=== PATIENT | male | born 1985 | race Caucasian/White ===

== ENCOUNTER 2016-08-11 11:15 | Emergency (ER) | payer MEDICAID ==
[2016-08-11 11:39] VITALS: BP 133/71
--- NOTE | 2016-08-11 11:59 | UC ---
Cardiac HPI - HPI Summary HPI Summary: left side chest pain x 5 days was seen at her pcp last week, had chest xray , EKG , D-Dimer done , all negative cont. to have left sided chest pain with upper ext movements and now having a swelling at the left chest wall - History of Current Complaint Chief Complaint: UCChestPain Stated Complaint: CHEST PAIN Time Seen by Provider: 08/11/16 11:41 Hx Obtained From: Patient Onset/Duration: Gradual Onset, Lasting Days - 5, Still Present Timing: Constant Initial Severity: Moderate Current Severity: Moderate Chest Pain Location: Left Anterior Aggravating: Position, Movement, Deep Breaths Alleviating: Rest, OTC Meds Associated Signs & Symptoms: Positive: Swelling. Negative: Anxiety, Recent Stress, Headaches, Numbness, Tingling, Weakness, Dizziness, SOB, Syncope, Fever , Diaphoresis, Nausea/Vomiting, Palpitations, Cough, Hemoptysis, Back Pain, Abdominal Pain, Calf Pain/Swelling - Allergy/Home Medications Allergies/Adverse Reactions: Allergies Allergy/AdvReac Type Severity Reaction Status Date / Time SEASONAL Allergy Mild Congestion Uncoded 08/11/16 11:33 Home Medications: Home Medications Ibuprofen [Advil] 800 mg PO TID 08/11/16 [History Confirmed 08/11/16] PMH/Surg Hx/FS Hx/Imm Hx Previously Healthy: Yes Other History Of: Hepatitis C - cleared - Surgical History Surgical History: Yes Surgery Procedure, Year, and Place: TONSILLECTOMY - Family History Known Family History: Negative: Hypertension, Diabetes - Social History Alcohol Use: None Substance Use Type: None Smoking Status (MU): Former Smoker Type: Cigarettes Amount Used/How Often: 1/2 PPD Review of Systems Constitutional: Negative Skin: Negative Eyes: Negative ENT: Negative Respiratory: Negative Cardiovascular: Chest Pain Gastrointestinal: Negative All Other Systems Reviewed And Are Negative: Yes Physical Exam Triage Information Reviewed: Yes Appearance: Well-Appearing, No Pain Distress, Well-Nourished Vital Signs: Initial Vital Signs Temp 99.5 F 08/11/16 11:29 Pulse 84 08/11/16 11:29 Resp 18 08/11/16 11:29 BP 133/71 08/11/16 11:29 Pulse Ox 99 08/11/16 11:29 Vital Signs Reviewed: Yes Eyes: Positive: Conjunctiva Clear ENT: Positive: Normal ENT inspection, Hearing grossly normal, Pharynx normal Neck: Positive: Supple, Nontender Respiratory: Positive: Lungs clear, Normal breath sounds, No respiratory distress, Other: - + swelling and tenderness anterior left chest wall Cardiovascular: Positive: RRR - Clinical Impression Provider Diagnoses: costochondritis Discharge - Discharge Plan Condition: Stable Disposition: HOME Prescriptions: Naproxen 500 mg PO BID #20 tab Patient Education Materials: Costochondritis (ED) Referrals: Oscar Tinsley MD [Primary Care Provider] - 2 Weeks
== END 2016-08-11 12:04 | disposition home or self-care (01) ==
LOC: UCEAST 11:15
DX: M94.0 Chondrocostal junction syndrome [Tietze] (principal); Z87.891 Personal history of nicotine dependence
CPT/HCPCS: 93005; 99212; G0463

== ENCOUNTER → 2019-05-11 06:45 | Day surgery (SDC) | payer BC ==
--- NOTE | 2019-05-10 16:07 | HP ---
HISTORY AND PHYSICAL: DATE OF ADMISSION/SURGERY: 05/11/19 DATE OF OFFICE VISIT: 05/10/19 SURGEON: Augusta Bazan MD.* (DICTATED BY VANDANA SAHNI) PROCEDURE: Left knee arthroscopy with partial meniscectomy, possible chondroplasty, possible synovectomy, and possible plica excision. CHIEF COMPLAINT: Left knee pain. HISTORY OF PRESENT ILLNESS: Mr. Alvarez is a 33-year-old gentleman who injured his left knee. An MRI confirmed a bucket handle meniscus tear. He has elected to proceed with surgery. PAST MEDICAL HISTORY: History of opioid dependence. PAST SURGICAL HISTORY: Tonsillectomy. CURRENT MEDICATIONS: 1. Suboxone. 2. Multivitamin. ALLERGIES: No known drug allergies. FAMILY HISTORY: Denies. SOCIAL HISTORY: This is a 33-year-old gentleman who lives with his . He does not smoke, use drugs or alcohol. REVIEW OF SYSTEMS: A complete 14-point review of systems was reviewed with the patient, was all negative or noncontributory. He denies a history of DVT, PE, hepatitis, HIV, or anesthesia problems. PHYSICAL EXAMINATION GENERAL: He is well developed, well nourished, in no acute distress. VITAL SIGNS: He stands 72 inches tall, weighs 155 pounds, his blood pressure 110/60, his heart rate 68. HEENT: Normocephalic, atraumatic. NECK: Supple. No palpable lymph nodes. PULMONARY: The lungs are clear to auscultation bilaterally. CARDIO: Regular rate and rhythm. Strong S1, S2. ABDOMEN: Soft, nontender, nondistended. NEUROLOGIC: He is alert and oriented x3. MUSCULOSKELETAL: Left lower extremity, skin is intact. There are no open wounds or abrasions. There is moderate effusion at the left knee, some tenderness along the medial joint line. Positive Apley's. Positive Mayur' s. Negative Jeremy's. He is able to dorsiflex and plantarflex. He has 2+ dorsalis pedis pulse and intact sensation. ASSESSMENT AND PLAN: Mr. Alvarez is 33-year-old gentleman with left knee pain secondary to a meniscus tear. He has elected to proceed with the left knee arthroscopy with partial meniscectomy, possible chondroplasty, possible synovectomy, and possible plica excision. The surgery is scheduled for with Dr. Bazan. Dr. Bazan discussed the risks and benefits of the surgery at today's visit and all of his questions were answered. He will follow up with Dr. Bazan 2 weeks after the surgery. VANDANA SAHNI [id number]/[facility] #: [id number] [place]
[~2019-05-11 06:45] MED LIST: Acetaminophen IV 1GM/100ML * 100 ML ONE; Buffered Lidocaine 1% SYRIN* 1 ML/SYRINGE INTRADERM ONE; Bupivacaine 0.5%* 50 ML MDV VIAL ONE; EPINEPHRINE 1 MG/ML 1 ML VIAL ONE; HYDROmorphone INJ1* 1 MG/ML SYRINGE IV PRN; KETAMINE HCL* 50 MG/ML 10 ML VIAL ONE; Ketorolac INJ* 30 MG/ML 1 ML VIAL ONE; Lactated Ringers 1000 ML Bag* 1,000 ML IV SCH; Lidocaine 2% PF * 5 ML VIAL ONE; Midazolam* 1 MG/ML 5 ML VIAL (5 MG) ONE; Naloxone* 0.4 MG/ML 1 ML VIAL IV PRN; PROCHLORPERAZINE INJ 5 MG/ML 2 ML VIAL IV PRN; Propofol* 10 MG/ML 20 ML BTL ONE; ceFAZolin 2 GM PREMIX in ORs 2 GM/50 ML BAG ONE; fentaNYL* 50 MCG/ML 2 ML VIAL (100 MCG VIAL) IV PRN; fentaNYL* 50 MCG/ML 2 ML VIAL (100 MCG VIAL) ONE; methylPREDNISolone ACETATE 80* 80 MG/ML 1 ML VIAL ONE; oxyCODONE TAB* 5 MG TAB PO PRN
[2019-05-11 12:42] VITALS: BP 121/72
--- NOTE | 2019-05-11 21:25 | OP ---
DATE OF OPERATION: 05/11/19 - [facility] DATE OF : 85 SURGEON: Augusta Bazan MD [employer] MECHANIC: VANDANA Padilla. Mr. Salgado did help throughout the procedure with preparation of the leg, wound retraction, manipulation of the knee, and wound closure. ANESTHESIOLOGIST: Dr. Byrd. ANESTHESIA: Spinal. PRE-OP DIAGNOSIS: Left knee displaced bucket-handle medial meniscal tear. POST-OP DIAGNOSIS: Left knee displaced bucket-handle medial meniscal tear. OPERATIVE PROCEDURE: Left knee arthroscopy with partial medial meniscectomy. COMPLICATIONS: None. SPECIMENS: None. ESTIMATED BLOOD LOSS: Less than 25 cc. BRIEF HISTORY/INDICATIONS: Mr. Alvarez is a 33-year-old gentleman with 3 months of left knee pain. He was surfing in [place] in February when he twisted the left knee and had immediate acute pain. He failed conservative treatment and continued to have mechanical symptoms as well as locking of the knee. MRI confirmed a displaced bucket-handle tear of the medial meniscus. I did advise the patient that my best medical recommendation was to have a left knee arthroscopy with partial medial meniscectomy versus repair. The patient and I discussed the risks and benefits, and he wished to have a partial meniscectomy rather than a repair attempt. Informed consent was obtained from the patient. He understood the risks of surgery included, but were not limited to bleeding, infection, damage to nearby structures, continued pain, need for further surgery , retear of the meniscus, early progression of arthritis, stroke, heart attack, blood clot, and . He wished to proceed. INTRAOPERATIVE FINDINGS: Intraoperatively, the patient does have a displaced bucket-handle type tear of the medial meniscus. This involved the red-white zone. There were minimal degenerative changes noted in the knee. DESCRIPTION OF PROCEDURE: Mr. Alvarez was identified in the preanesthesia unit. His left lower extremity was marked as the correct operative side. Informed consent was signed and placed in the chart. The patient was taken to the operating room and placed under anesthesia without difficulty. His left lower extremity was prepped and draped in the usual sterile fashion. Preop time -out was made to correctly identify the patient, side, and site. Appropriate perioperative antibiotics were given within 1 hour of incision. A 1.5 cm anterolateral portal incision was made with a #10 blade and carried down through the capsule. Trocar was introduced. As soon as the light and water sources were turned on, there was immediate visualization of the suprapatellar pouch. A tour of the knee joint was performed. Suprapatellar pouch had no obvious abnormality. Patellofemoral compartment had minimal degenerative changes. Medial gutter showed no loose body or plica. Medial compartment showed minimal degenerative changes. There was a displaced bucket- handle type tear with a displaced fragment in the intercondylar notch region. ACL and PCL appeared to be intact. The knee was placed in a [id number] position. Lateral meniscus had no obvious tear. Lateral compartment had minimal degenerative changes. Lateral gutter had no obvious abnormality. Under direct visualization, a medial portal incision was made with a #10 blade. A probe was introduced. A second tour of the knee joint was performed. No additional findings were noted. The displaced meniscal tear bucket-handle fragment was reduced back into the medial joint space. Straight biter and shaver were used to perform partial medial meniscectomy. The torn bucket- handle fragment was carefully excised. Further probing of the medial meniscus showed no additional tears. This fragment was excised mainly in the white-red zone. Radiofrequency ablation wand was used to further smooth the edge of the remaining medial meniscus. The knee was copiously irrigated with sterile saline. All instruments were removed. The incisions were closed with 3-0 nylon suture. Sterile Xeroform, 4x4s, and Webril were used to cover the incision. Matheus wrap and cold pack were placed over this. The patient's anesthesia was reversed without difficulty. He was taken to the PACU in stable condition. Intended weightbearing will be weightbearing as tolerated. Intended DVT prophylaxis will be aspirin. [id number]/[facility] #: [id number] [place]
== END | disposition home or self-care (01) ==
LOC: OR 06:45
PROVIDERS: ATTEND Orthopaedic Surgery Adult Reconstructive Orthopaedic Surgery
DX: S83.212A Bucket-handle tear of medial meniscus, current injury, left knee, initial encounter (principal); X50.0XXA Overexertion from strenuous movement or load, initial encounter; Y93.18 Activity, surfing, windsurfing and boogie boarding; Y92.89 Other specified places as the place of occurrence of the external cause; F11.20 Opioid dependence, uncomplicated; Z79.899 Other long term (current) drug therapy
CPT/HCPCS: J0690; J1040; J1885; J2250; J2704; J3010; J3490

== ENCOUNTER 2024-01-03 18:20 | Observation (INO) ==
[2024-01-03] MEDS: Iodixanol 320 (CONTRAST) 100 ML SDV IV ONE (18:47)
[2024-01-03 18:51] LABS: ABS Lymphocytes 0.9 10^3/uL (1.0-4.8); ABS Monocytes 0.7 10^3/uL (0.0-1.1); ABS Neutrophils 7.2 10^3/uL (1.5-7.6); ABS Nucleated RBC 0.01 10^3/ul; Eosinophil % 0.5 %; Hemoglobin 14.4 g/dL (13.2-16.3); Lymphocyte % 9.8 %; Mean Corpuscular Hemoglobin 29.9 pg (27-33); Mean Corpuscular Hgb Conc 34.3 g/dL (31-36); Mean Corpuscular Volume 87.2 fL (80-97); Mean Platelet Volume 9.1 fL (7.5-11.2); Nucleated Red Blood Cells % 0.1 %/100WBC (0.0-0.8); Platelet Count 242 10^3/uL (150-450); Red Blood Count 4.82 10^6/uL (4.06-5.63); Red Cell Distribution Width 13.7 % (12-17); White Blood Count 8.9 10^3/uL (3.6-10.2)
[2024-01-03 19:02] LABS: Activated Partial Thrombo Time 33.7 seconds (26.0-38.0); INR 1.04 (0.85-1.14)
[2024-01-03 19:18] LABS: High Sens Troponin Baseline < 3 pg/mL (<20)
[2024-01-03 19:40] LABS: ALT 108 U/L (7-52); AST 69 U/L (13-39); Albumin 5.5 g/dL (3.2-5.2); Albumin/Globulin Ratio 1.6 (1-3); Alkaline Phosphatase 99 U/L (35-149); Anion Gap 11 mmol/L (2-16); Blood Urea Nitrogen 12 mg/dL (6-24); CO2 Carbon Dioxide 30 mmol/L (22-32); Calcium 10.5 mg/dL (8.6-10.3); Chloride 98 mmol/L (101-111); Cholesterol 208 mg/dL; Creatinine, Serum 0.87 mg/dL (0.67-1.17); Direct Bilirubin 0.1 mg/dL (0.03-0.18); Globulin 3.5 g/dL (2-4); Glucose 112 mg/dL (70-100); HDL Cholesterol 72.2 mg/dL; Indirect Bilirubin 0.4 mg/dL (0.3-1.0); LDL Cholesterol 117 mg/dL; Potassium 3.3 mmol/L (3.5-5.0); Sodium 139 mmol/L (135-145); Total Bilirubin 0.5 mg/dL (0.2-1.0); Triglycerides 96 mg/dL; eGFR CKD-EPI 113.3 (>60)
[2024-01-03] MEDS: Dexamethasone IV 4 MG/ML VIAL 1 ml VIAL IV SLOW PU ONE (20:01)
[2024-01-03] MEDS: Prochlorperazine 5 mg/ml 2 ml VIAL (10 mg) IV ONE (20:01)
[2024-01-03] MEDS: NS 0.9% 1000 ml BAG 1,000 ML IV ONE (20:05)
[2024-01-03 20:50] LABS: High Sensitivity Troponin 1 Hr < 3 pg/mL (<20)
[2024-01-04] MEDS: Potassium Chlor 20 meq TAB.ER PO ONE (03:35)
[2024-01-04 06:31] LABS: Albumin 4.2 g/dL (3.2-5.2); Albumin/Globulin Ratio 1.8 (1-3); Calcium 9.6 mg/dL (8.6-10.3); Creatinine, Serum 0.69 mg/dL (0.67-1.17); Direct Bilirubin 0.1 mg/dL (0.03-0.18); Globulin 2.4 g/dL (2-4); Indirect Bilirubin 0.5 mg/dL (0.3-1.0); Potassium 4.5 mmol/L (3.5-5.0); Total Bilirubin 0.6 mg/dL (0.2-1.0); Total Protein 6.6 g/dL (6.4-8.9); eGFR CKD-EPI 121.5 (>60)
[2024-01-04] MEDS: Lactated Ringers 1000 ml BAG 1,000 ML IV ONE (06:37)
[2024-01-04] MEDS: Venlafaxine XR 75 mg PO SCH (19:36)
[2024-01-05] MEDS: Aspirin EC 81 mg TAB.EC (enteric coated) PO ONE (05:42)
[2024-01-05 12:32] VITALS: BP 118/63
== END 2024-01-05 13:20 | disposition home or self-care (01) ==
LOC: ED 18:20 → EDHOLD 18:20 → SUATTDRO 23:11 → MEDTELE 01-04 00:54
PROVIDERS: ADMIT Internal Medicine; ATTEND Student in an Organized Health Care Education/Training Program